=== PATIENT | male | born 1970 | race Caucasian/White ===

== ENCOUNTER → 2017-07-08 | Outpatient (CLI) | payer OTHER ==
[~2017-07-08] MED LIST: ABILIF5PT PO; ACAR25TA PO; ACE325 PO; ALBU8.5H IH; ALP25 PO; ARIP10TA5 PO; ATEN-1 PO; AZIT-1 PO; BACL-1 PO; BLOO-1456 MC; BLOO-1775 MC; BLOO1STR16 MC; CHLO25TA19 PO; CIPR750T84 PO; CPAP; DIA5 PO; DIAZ-1 PO; DIAZ-308 PO; DICY-42 PO; DICY20TA70 PO; DOXY-179 PO; DUL20 PO; DULO30CA35 PO; ESOM40CA42 PO; ESZ3PT PO; ESZO1TAB16 PO; EZET10TA41 PO; FEN200PT GT; FEN200PT PO; FLU60SYR30 IM ONLY; GAB300 PO; GABA-549 PO; GUAI120L3 PEG; HYD2 PO; HYDR2TAB74 PO; INSU100C10 SQ; INSU100C14 SQ; INSU100I30 SQ; LANI SUBQ; LEV25 PO; LEVO50 PO; LEVO50TA80 PO; LOR75 PO; MAGN400T4 PO; MECL-205 PO; MECL25TA27 PO; METF-410 PO; METF-420 PO; METO-734 PO; MILK140C3 PO; MILK500C2 PO; NOVOLOG SUBQ; OMEP-153 PO; OMEP-218 PO; OXYC-857 PO; OXYGENHOME INH; PANT40TA65 PO; PERD PO; POTA99TA6 PO; PROM-110 PO; RANI-324 PO; ROBC PO; ROSU10TA13 PO; SUCR1TAB85 PO; SYRI-1525 SUBQ; TEST200V20 IM; TOBR5DRO43 OS; TRAZ-156 PO; VALS-25 PO; [UNRECOGNIZED DRUG - CODE]; [UNRECOGNIZED DRUG - CODE] MC; [UNRECOGNIZED DRUG - CODE] PO; [UNRECOGNIZED DRUG - CODE] PO
[2017-07-08 09:32] LABS: PLATELET COUNT, AUTOMATED 295 K/uL (150-450)
== END ==
LOC: LAB 09:14
PROVIDERS: ATTEND Emergency Medicine
DX: Z12.5 Encounter for screening for malignant neoplasm of prostate (principal); E11.9 Type 2 diabetes mellitus without complications; E03.9 Hypothyroidism, unspecified
CPT/HCPCS: 36415; 82040; 82247; 82310; 82374; 82435; 82565; 82947; 83036; 84075; 84132; 84153; 84155; 84295; 84443; 84450; 84460; 84520; 85025

== ENCOUNTER 2017-12-05 08:00 | Outpatient (RCR) | payer OTHER ==
[2017-11-30 10:32] VITALS: BP 125/77
[~2017-12-05 08:00] MED LIST changes: -METF-410 PO; -METF-420 PO; +METF-450 PO; +METF-452 PO; +MILK THISTLE140 MG PO; -MILK140C3 PO; +NEED-653 MC; -RANI-324 PO; +RANI-366 PO; -ROSU10TA13 PO; +ROSU10TA5 PO; -TRAZ-156 PO; +TRAZ50TA34 PO
[2017-12-05 08:05] VITALS: BP 122/77
--- NOTE | 2017-12-06 16:22 | SCHUSTER ONCOLOGY NOTE ---
EVENT DATE: December 05, 2017 CHIEF COMPLAINT/REASON FOR VISIT Mr. 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 HISTORY OF PRESENT ILLNESS Harley returns. He has multiple risk factors for secondary erythrocytosis as outlined above. He had three phlebotomies in October 2016 and felt much better. However, he felt that his ability to lift weight was affected by this, and so he chose to stop. He gets occasional nosebleeds, and those did not change regardless of whether or not we did the phlebotomies. We would recommend a continued aspirin, but need to use caution with the nosebleeds. He recently applied for life insurance, but was denied due to his hematocrit approximately 60%. I do recommend he get back on the phlebotomies. He has an upcoming world championship event in [place] in April, and so he plans to do this for a time, stopping in preparation for the event, and then I hope to see him after that time to convince him to continue. PAST MEDICAL/SURGICAL HISTORY 1. Episodic epistaxis. 2. Hypertension. 3. Hyperlipidemia. 4. Obstructive sleep apnea. 5. GERD. 6. History of pancreatitis. 7. Hypogonadism. 8. Chronic neck pain. 9. History of neck surgery. 10. Type 2 diabetes. 11. Hypothyroidism. 12. History of PTSD and anxiety. 13. Polycythemia. 14. Spinal surgery to C3 through C7 spaces. 15. Various arthroscopies. 16. History of lipomas removed. 17. History of tonsillectomy. 18. History of ear surgery. FAMILY HISTORY Remarkable for Parkinson disease, diabetes, lupus, stroke in the family. Mother had renal cell carcinoma by report. SOCIAL HISTORY Never smoked. No significant alcohol use. Harley has presented with his , Marva. 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 REVIEW OF SYSTEMS CONSTITUTIONAL: No fevers, chills, or weight change. HEENT: No headache or vision changes. Occasional nosebleeds with his body building, but this due to mechanical pressure as opposed to other issues. CARDIOVASCULAR: No chest pain, dyspnea on exertion, edema, or history of [place]. RESPIRATORY: No shortness of breath, wheeze, or cough. GASTROINTESTINAL: No nausea or vomiting. GENITOURINARY: No dysuria or hematuria. MUSCULOSKELETAL: No weakness or joint pain. PSYCHIATRIC: No anxiety or depression. ENDOCRINE: No heat or cold intolerance. SKIN: No concerning rashes or bruises. HEMATOLOGIC/LYMPHATIC: Occasional epistaxis. No concerning lumps or bumps. The remainder of 14-point review of systems otherwise negative. PHYSICAL EXAMINATION VITAL SIGNS: Blood pressure 122/77, pulse 51, respiratory rate 16, temperature 97.2 Fahrenheit, oxygen saturation 91% on room air. Weight 124.6 kg. Pain 2/10, fatigue 2/10. GENERAL: In stable condition, resting comfortably in the chair. HEENT: Normocephalic, atraumatic. SKIN: Mild erythema of the skin due to the high hematocrit, which we will attempt to fix. CARDIOVASCULAR: Deferred EXTREMITIES: No clubbing, cyanosis, or edema. Full physical exam deferred today due to amount of time spent counseling and coordination of care . IMPRESSION AND PLAN Mr. Gutierrez is a pleasant, 47-year-old gentleman with the following: Secondary erythrocytosis. His hematocrit has been as high as 63%. Our goal is to get him down closer to 50%. He does plan to continue to use testosterone for hypogonadism. He does get epistaxis with body building, but no epistaxis outside of that. We are trying to keep his iron low normal. He does not want to continue phlebotomies when he is nearing competition, but will try to get phlebotomies more frequently when he is not competing. We had an excellent discussion today. BILLING Return visit level 4. Total time 30 minutes, counseling time 20. MTDD
[2017-12-07] MEDS ORDERED: DIAZ-308 PO (08:29)
== END 2018-01-04 08:52 | disposition home or self-care (01) ==
LOC: ONC 08:00
PROVIDERS: ATTEND Internal Medicine
DX: E83.119 Hemochromatosis, unspecified (principal); D75.1 Secondary polycythemia; E29.1 Testicular hypofunction
CPT/HCPCS: 36415; 85014; 99212

== ENCOUNTER → 2018-03-13 | Outpatient (CLI) | payer OTHER ==
[~2018-03-13] MED LIST changes: +CHOL10005 PO; +SULF-198 PO
[2018-03-13 15:48] LABS: PLATELET COUNT, AUTOMATED 257 K/uL (150-450)
== END ==
LOC: LAB 14:47
PROVIDERS: ATTEND Emergency Medicine
DX: N18.9 Chronic kidney disease, unspecified (principal); F41.9 Anxiety disorder, unspecified; D75.1 Secondary polycythemia
CPT/HCPCS: 36415; 81001; 82043; 82306; 82310; 82374; 82435; 82565; 82607; 82610; 82947; 83970; 84100; 84132; 84295; 84520; 85025

== ENCOUNTER 2018-07-10 02:31 | Inpatient (IN) | payer OTHER ==
--- NOTE | 2018-06-27 14:44 | EKG ---
FACILITY: [facility] PATIENT NAME: MARY FLORES : [id number] MR: [id number] V: [id number] EXAM DATE: ORDERING PHYSICIAN: MIKE LOPEZ TECHNOLOGIST: Test Reason : pre-op Blood Pressure : / mmHG Vent. Rate : 083 BPM Atrial Rate : 083 BPM P-R Int : 146 ms QRS Dur : 106 ms QT Int : 372 ms P-R-T Axes : 070 082 -13 degrees QTc Int : 437 ms Normal sinus rhythm T wave abnormality, consider inferior ischemia Abnormal ECG When compared with ECG of 11-OCT-2016 13:24, QRS duration has increased Criteria for Septal infarct are no longer present Confirmed by Rene Juarez ([id number]) on 06/28/2018 12:07:04 AM Referred By: Confirmed By:Rene Lantigua
[2018-07-09 11:25] LABS: PLATELET COUNT, AUTOMATED 255 K/uL (150-450)
[2018-07-10] VITALS (9 sets, daily range): BP systolic 95–142; BP diastolic 59–105
[~2018-07-10] VITALS: Ht 188 cm; Wt 115.9 kg
[2018-07-10] MEDS ORDERED: NS(*) 0.9% 500 ML BAG 500 ML ONE (08:10)
[2018-07-10] MEDS ORDERED: CLINDAMYCIN(*) 900 MG/NS 50 ML 50 ML IVPB ONE (09:00)
[2018-07-10] MEDS ORDERED: NORMOSOL R SOLN(*) 1000 ML BAG 1,000 ML IV PRN (09:00)
[2018-07-10] MEDS ORDERED: LIDOCAINE/SOD BICARB 8.4% SYR ID ONE (09:00)
[2018-07-10] MEDS ORDERED: MIDAZOLAM 2 MG/2 ML VIAL IVP PRN (09:00)
[2018-07-10] MEDS ORDERED: ACETAMINOPHEN 500 MG TAB PO ONE (09:00)
[2018-07-10] MEDS ORDERED: ROCURONIUM BROM 10 MG/ML 10 ML ONE (09:46)
[2018-07-10] MEDS ORDERED: fentaNYL CITR 100 MCG/2 ML AMP ONE ×4 (09:46→18:24)
[2018-07-10] MEDS ORDERED: LIDOCAINE MPF 1% 5 ML VIAL ONE (09:46)
[2018-07-10] MEDS ORDERED: DEXAMETHASONE SOD PHOS 10MG/ML ONE (09:46)
[2018-07-10] MEDS ORDERED: ONDANSETRON 4 MG/2 ML VIAL ONE (09:46)
[2018-07-10] MEDS ORDERED: PROPOFOL EMUL(*) 10MG/ML 20 ML 20 ML ONE (09:46)
[2018-07-10] MEDS ORDERED: KETAMINE HCL 500 MG/10 ML VIAL ONE (09:47)
[2018-07-10] MEDS ORDERED: PHENYLEPHRINE 10 MG/1 ML VIAL ONE (09:52)
[2018-07-10] MEDS ORDERED: PROPOFOL EMUL(*) 10MG/ML 20 ML 60 ML ONE ×2 (09:56→14:18)
[2018-07-10] MEDS ORDERED: REMIFENTANIL HCL 1 MG VIAL ONE ×4 (10:03→14:57)
[2018-07-10] MEDS ORDERED: PREGABALIN 150 MG CAPSULE PO ONE (10:10)
[2018-07-10] MEDS ORDERED: THROMBIN (BOVINE) 20,000 UNIT VIAL ONE (10:11)
[2018-07-10] MEDS ORDERED: APREPITANT 40 MG CAP PO ONE (10:30)
[2018-07-10] MEDS ORDERED: NS 0.9% IR PRN (11:00)
[2018-07-10] MEDS ORDERED: BACITRACIN IR PRN (11:00)
[2018-07-10] MEDS: BACITRACIN IR PRN ×2 (13:10→13:42)
[2018-07-10] MEDS: NS 0.9% IR PRN ×2 (13:10→13:42)
[2018-07-10] MEDS ORDERED: ROPIVACAINE 0.2% 20 ML VIAL ONE (15:32)
--- NOTE | 2018-07-10 16:30 | EKG ---
[place] [facility] [place] NAME: MARY FLORES : [id number] MR: [id number] V: [id number] EXAM DATE: ORDERING PHYSICIAN: ELIECER OLIVEROS TECHNOLOGIST: MITA Thorpe Reason : Blood Pressure : / mmHG Vent. Rate : 096 BPM Atrial Rate : 096 BPM P-R Int : 146 ms QRS Dur : 102 ms QT Int : 342 ms P-R-T Axes : 072 084 022 degrees QTc Int : 432 ms Sinus rhythm Nonspecific interventricular conduction delay Nonspecific ST findings anterior leads Confirmed by JANKI BLOOM ([id number]) on 07/10/2018 4:49:08 PM Referred By: JESSICA Confirmed By:JANKI BLOOM
[2018-07-10] MEDS ORDERED: METOPROLOL TART 5 MG/5 ML VIAL ONE ×2 (16:32→16:55)
[2018-07-10] MEDS ORDERED: ACETAMINOPHEN(*)1000 MG/100 ML 100 ML IVPB PRN (16:40)
[2018-07-10] MEDS ORDERED: MAGNESIUM HYDROXIDE* 30ML UDCP PO PRN (16:40)
[2018-07-10] MEDS ORDERED: ONDANSETRON 4 MG/2 ML VIAL IVP PRN (16:40)
[2018-07-10] MEDS ORDERED: diphenhydrAMINE 25 MG CAP PO PRN (16:40)
[2018-07-10] MEDS ORDERED: oxyCODONE HCL 5 MG CAP PO PRN (16:40)
[2018-07-10] MEDS ORDERED: HYDROmorphone HCL 2 MG/ML SDV IVP PRN (16:40)
[2018-07-10] MEDS ORDERED: DIAZEPAM 5 MG TAB PO PRN (16:40)
[2018-07-10] MEDS ORDERED: BENZOCAINE/MENTHOL 1 EACH LOZG PO PRN (16:40)
[2018-07-10] MEDS ORDERED: BISACODYL 10 MG SUPP PR PRN (16:40)
[2018-07-10] MEDS ORDERED: LR(*) 1000 ML BAG 1,000 ML IV PRN (16:40)
[2018-07-10] MEDS ORDERED: FLUSH 10 ML SYR IVP PRN (16:40)
[2018-07-10] MEDS ORDERED: ACETAMINOPHEN 500 MG TAB PO PRN (16:40)
[2018-07-10] MEDS: METOPROLOL TART 5 MG/5 ML VIAL ONE ×2 (17:56→18:02)
--- NOTE | 2018-07-10 18:01 | RADIOLOGY IMAGING REPORT ---
FACILITY: [facility] PATIENT NAME: Harley Gutierrez : 1970 MR: [id number] V: [id number] EXAM DATE: ORDERING PHYSICIAN: MIKE LOPEZ TECHNOLOGIST: Location: [facility] Patient: Harley Gutierrez : 1970 Visit/Account:[id number] Date of Sevice: 07/10/2018 Exam type: CERVICAL SPINE 2 OR 3 VIEW History: C3-4 AND C6-7 DISC HERNIATION/FUSION Comparison: June 02, 2018. Findings: A single intraoperative cross table lateral view of the cervical spine was submitted. There is an en dotracheal tube in place. There is a metallic intervertebral disc spacer and screws producing anteri or fusion at C3-4. Incompletely imaged is anterior plate and screws at C4-C5 and possibly C6 IMPRESSION: 1. As above Report Dictated By: Marleny Sands MD at 07/10/2018 5:55 PM Report E-Signed By: Marleny aSnds MD at 07/10/2018 5:57 PM WSN:[id number]
[2018-07-10] MEDS ORDERED: VORT5TAB PO (18:54)
--- NOTE | 2018-07-10 18:59 | Hospitalist Progress Note ---
Subjective Progress Notes Subjective Patient seen post-op. Reviewed PMHx (type 2 DM, depression, DASHAWN, chronic pain) and medications. During surgery anesthesia was concerned about possible ST changes on monitoring. He had EKG done, which was unremarkable. Troponin was negative as well. At present he denies any CP/dyspnea/nausea. Physical Exam Vital Signs Date Time Temp Pulse Resp B/P (MAP) Pulse Ox O2 Delivery O2 Flow Rate FiO2 07/10/18 18:35 100 20 93 07/10/18 11:19 97.5 125/90 (102) Room Air General Appearance: Alert, Awake Neck: Other (cervical collar in place) Cardiovascular: Regular Rate and Rhythm Respiratory: Clear to Auscultation Psych: Alert & Oriented X3 Result Diagram: 07/09/18 1114 07/09/18 1114 Assessment and Plan Problems: (1) Depression Status: Chronic Assessment & Plan: Will continue with his same regimen with Trintellix, trazodone, Wellbutrin. (2) Type II diabetes mellitus Status: Chronic Assessment & Plan: ADA diet. Continue metformin. Watch glucoses and use SSI as needed. (3) Hypothyroidism Status: Chronic Assessment & Plan: Continue L-thyroxine. (4) Obstructive sleep apnea Status: Chronic Assessment & Plan: Continue CPAP. JANKI BLOOM MD Jul 10, 2018 18:59
[2018-07-10] MEDS ORDERED: INSULIN HUM LISPRO 100 UN/ML 3 ML VIAL SUBQ PRN (19:15)
[2018-07-10] MEDS ORDERED: BUPR-126 PO (20:04)
[2018-07-10] MEDS ORDERED: METF-452 PO (20:04)
[2018-07-10] MEDS: CLINDAMYCIN(*) 900 MG/NS 50 ML 50 ML IVPB SCH (20:27)
[2018-07-10] MEDS: DOCUSATE SODIUM 100 MG CAP PO SCH (20:27)
[2018-07-10] MEDS: GABAPENTIN 300 MG CAP PO SCH (20:28)
[2018-07-10] MEDS: ATENOLOL 50 MG TAB PO SCH (20:29)
[2018-07-10] MEDS: APAP/HYDROCODONE 325/5 TAB PO PRN (20:30)
[2018-07-10] MEDS ORDERED: traZODone HCL 50 MG TAB PO SCH (21:00)
[2018-07-11] VITALS: BP 100/67
[2018-07-11 01:00] VITALS: BP 104/64
[2018-07-11 02:00] VITALS: BP 104/63
[2018-07-11] MEDS: APAP/HYDROCODONE 325/5 TAB PO PRN ×2 (02:22→06:15)
[2018-07-11 03:00] VITALS: BP 100/60
[2018-07-11] MEDS: CLINDAMYCIN(*) 900 MG/NS 50 ML 50 ML IVPB SCH (03:44)
[2018-07-11] MEDS ORDERED: LEVOTHYROXINE SOD 0.05 MG TAB PO SCH (06:00)
[2018-07-11 06:43] VITALS: BP 111/65
[2018-07-11] MEDS ORDERED: DOCU240C84 PO (07:31)
[2018-07-11] MEDS ORDERED: HYDR-385 PO (07:31)
[2018-07-11] MEDS: ATENOLOL 50 MG TAB PO SCH (08:00)
[2018-07-11] MEDS: GABAPENTIN 300 MG CAP PO SCH (08:00)
[2018-07-11] MEDS: DOCUSATE SODIUM 100 MG CAP PO SCH (08:00)
[2018-07-11 08:32] VITALS: Ht 188 cm; Wt 115.9 kg
[2018-07-11] MEDS ORDERED: RANITIDINE HCL 150 MG TAB PO SCH (09:00)
[2018-07-11] MEDS ORDERED: ARIPiprazole 10 MG TAB PO SCH (09:00)
[2018-07-11] MEDS ORDERED: VORTIOXETINE HYDROBROMIDE 5 MG TAB PO SCH (09:00)
[2018-07-11] MEDS ORDERED: buPROPion XL 150 MG TABCR PO SCH (09:00)
[2018-07-11] MEDS ORDERED: metFORMIN HCL 500 MG TAB PO SCH (09:00)
--- NOTE | 2018-07-11 10:16 | NUR ---
Physical Therapy Impression PT eval completed and pt met all PT goals for safe d/c home with initial visit. No further visit planned. Physical Therapy Goals PT goals met with initial visit; no further visits planned 1. Pt to be modified indep with all bed mobility and supine<>sit trnsfrs 2. Pt to be modified indep with all sit to/from stand transfers 3. Pt to be modified indep with ambulation x 150' without assistive device 4. Pt to sushil up/down 6 steps with rail to simulate entry to home with SBA/Modified indep Patient's Goals
--- NOTE | 2018-07-11 11:03 | Hospitalist Progress Note ---
Subjective Progress Notes Subjective He was admitted s/p cervical fusion. He has no complaints this morning. He would like to go home. Patient Complains of: Cardiovascular: No: Chest Pain Respiratory: No: Shortness of Breath Physical Exam Vital Signs Date Time Temp Pulse Resp B/P (MAP) Pulse Ox O2 Delivery O2 Flow Rate FiO2 07/11/18 08:00 91 Room Air 07/11/18 06:43 97.6 86 20 111/65 (80) 07/11/18 03:00 2.0 Intake and Output 07/11/18 06:59 Intake Total 3805 ml Output Total 780 ml Balance 3025 ml Intake Oral 1250 ml IV Total 2555 ml Output Urine Total 750 ml Drainage Total 30 ml # Voids 3 General Appearance: Alert, Awake, No Acute Distress, Afebrile Neuro: No Gross deficits Cardiovascular: Regular Rate and Rhythm Respiratory: No Respiratory Distress, Clear to Auscultation GI: Soft and Non-Tender Psych: Alert & Oriented X3, Appropriate Mood & Affect Result Diagram: 07/09/18 1114 07/09/18 1114 Assessment and Plan Problems: (1) Depression Status: Chronic Assessment & Plan: Will continue with his same regimen with Trintellix, trazodone, Wellbutrin. (2) Type II diabetes mellitus Status: Chronic Assessment & Plan: ADA diet. Continue metformin. Watch glucoses and use SSI as needed. (3) Hypothyroidism Status: Chronic Assessment & Plan: Continue L-thyroxine. (4) Obstructive sleep apnea Status: Chronic Assessment & Plan: Continue CPAP. Exam Sepsis Risk: No Definite Risk MAHOGANY TOMPKINS Jul 11, 2018 11:03
[2018-07-11] MEDS ORDERED: GABAPENTIN 300 MG CAP PO SCH (12:00)
--- NOTE | 2018-07-11 16:49 | OPERATIVE REPORT 1 ---
EVENT DATE: July 10, 2018 SURGEON: Taras Hogan MD ANESTHESIOLOGIST: Shai Alegria MD ANESTHESIA: General endotracheal anesthesia. VIDEO ARCADE MANAGER: JED Augustin PREOPERATIVE DIAGNOSES 1. C3-C4 broad-based disk bulge with cord compression. 2. C6-C7 broad-based disk bulge with right foraminal narrowing. 3. 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 POSTOPERATIVE DIAGNOSES 1. C3-C4 broad-based disk bulge with cord compression. 2. C6-C7 broad-based disk bulge with right foraminal narrowing. 3. 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 PROCEDURE PERFORMED C3-C4 and C6-C7 anterior cervical discectomy and fusion. INTRAVENOUS FLUIDS 2100 mL ESTIMATED BLOOD LOSS 40 mL IMPLANTS USED A size small, 6 mm tall, 6-degree lordotic interbody device from [employer], a size small, 7 mm tall, 6-degree lordotic titanium interbody device from [employer], and 3.5 mm x 14 mm fixation screws from [employer] times three. DRAINS A 10-Thai round Jace-Lynn drain through the neck. COMPLICATIONS None. DISPOSITION Post-anesthesia care unit. INDICATIONS FOR SURGERY Harley Gutierrez is a 47-year-old male who presented to me with a long history of neck problems. He underwent a C4-C5, C5-C6 anterior cervical discectomy and fusion in the past and did well with that. At this point, he presented with right greater than left arm pain going into the dorsal forearm and into the long and middle fingers on the right greater than the left. He had significant issues with fine motor skills such as buttoning buttons and manipulating small objects. He also noted some issues with his gait and felt quite unbalanced. He reported dysesthesias with certain neck positions radiating down his spine into the upper back and down to the lower back. His physical examination revealed a strongly positive Romberg test. He had a positive Lhermitte, but a negative Spurling maneuver bilaterally. Muscle strength was 5/5 throughout, while light touch sensation was diminished in the long finger on the right. Deep tendon reflexes were absent in the right biceps, 1+ in the left biceps, and 1+ in bilaterally triceps. He had a negative Montano sign bilaterally. X-rays and an MRI showed what appeared to be a solid interbody fusion at C4-C5 and C5-C6. There was severe disk height loss at C3-C4, and at that level, a very large broad-based disk bulge caused significant flattening of the cervical spinal cord. At C6-C7, there was right greater than left neural foraminal narrowing with less crowding of the cord. Secondary to his symptoms that were consistent with myelopathy as well as radiculopathy and failure of physical therapy, multiple injections, and activity modifications, Mr. Gutierrez was offered a C3-C4 and C6-C7 anterior cervical diskectomy and fusion. Prior to surgery, he was sent to an ENT specialist to ensure that vocal cord function was normal, and it was. Therefore, we elected to perform the procedure from the contralateral side of his index operation. Prior to surgery, I explained in detail to the patient the possible risks of surgery. These risks include bleeding, infection, damage to surrounding structures, nerve root injury, spinal cord injury, spinal fluid leak, meningitis, persistent and/or worsening pain, , blindness, sexual dysfunction, autonomic nervous system dysfunction, and other unforeseen medical and surgical complications. An understanding that in general spinal surgery is more predictive at improving extremity discomfort than axial spine pain was stressed. Further understanding that symptoms of myelopathy are more likely to stabilize rather than improve was also stressed. Finally, we discussed the fact that given the revision nature of the procedure, he had an increased risk for such things as laryngeal recurrent or superior laryngeal nerve root injury, esophageal injury, hoarseness, swallowing difficulties, etc. DESCRIPTION OF PROCEDURE On the day of surgery, the patient was met in the preoperative hold area, and all questions were answered. The operative site was identified and marked by myself. The patient was brought in good condition to the operating room, and after succumbing to anesthesia, was positioned in the supine position on a standard OR bed. Care was taken to maintain appropriate perfusion pressures during anesthesia. All bony protuberances and soft tissues were well padded in the standard fashion. Preoperative antibiotics were administered according to the appropriate timing schedule. At the conclusion of the procedure, sponge and needle counts were correct times two. A final timeout was undertaken by members of the operating team to confirm correct patient, correct levels, and correct surgery. The patient was then prepped and draped in the standard sterile orthopedic fashion, and an oblique incision was made along the medial border of the sternocleidomastoid muscle on the right side of the anterior neck. Sharp dissection was carried out down to the platysma, which was divided. The interval medial to the sternocleidomastoid muscle was identified, and a finger was used to palpate the carotid pulse. Blunt finger dissection was carried out medial to the carotid sheath coming down onto the cervical spine. The previously placed anterior plate was identified, and we first chose to address the C3-C4 level just above that plate. A 15 blade was used to incise the annulus, and progressively smaller curettes were used to perform a discectomy moving from ventral to dorsal. We also performed this discectomy out into the uncovertebral joints, and once we reached the posterior aspect of the disk space, a high-speed giuseppe was used to remove the posterior osteophyte. I was able to get through the posterior annulus and then carefully dissect through the posterior longitudinal ligament and into the canal. #1 and #2 Kerrison rongeurs were used to remove the posterior longitudinal ligament, and a nerve hook was passed behind the vertebral bodies ensuring good decompression of the cord itself. I then selected a 6 mm rasp and inserted that into the C3-C4 disk space, and it had an excellent tight press fit. We, therefore, selected a 6 mm interbody device, and this was packed with demineralized bone matrix and then inserted into the disk space and countersunk about 0.5 mm. Due to the body habitus, we were unable to place a screw downward into the C4 vertebral body, but we were able to get a screw through the integrated hole in the device and into the vertebral body of C3. Attention was then turned to the C6-C7 level. We placed our retractor over that C6-C7 disk and again first incised the annulus with a 15 blade, and then using progressively smaller curettes and working from ventral to dorsal, performed a discectomy out to the width of the uncovertebral joints bilaterally. We again took down the posterior longitudinal ligament and performed bilateral foraminotomies to ensure that the exiting nerve roots were well decompressed. A nerve hook was passed posterior to the vertebral bodies as well as out the foramina to ensure adequate decompression. At this level, we selected a 7 mm tall interbody device, and this was also packed with demineralized bone matrix and then inserted into the C6-C7 disk space and countersunk about 0.5 mm. The awl was used to penetrate the endplates through the integrated holes in the device, and we then placed 3.5 mm x 14 mm screws both up into C6 and down into C7. Final radiographs were obtained, and the wound was then irrigated with copious sterile saline solution. It was closed in layers using interrupted sutures for the platysma, inverted interrupted sutures for the subcutaneous tissue, and then a running subcuticular skin stitch. A 10-Thai round Jace- Lynn drain was left deep to the platysma. There were no changes in neurophysiologic monitoring throughout the course of the case. Sponge and needle counts were correct times two. POSTOPERATIVE CARE PLAN The patient will remain in hospital overnight and will be discharged home postoperative day #1 after his drain has been pulled. He will then follow up with me in two weeks' time for wound check and examination. YESY
[2018-07-12] MEDS ORDERED: BACL-51 PO (17:19)
== END 2018-07-11 10:15 | disposition home or self-care (01) | DRG 473 ==
LOC: OR 02:31 → MED 18:35
PROVIDERS: ADMIT Orthopaedic Surgery; ATTEND Orthopaedic Surgery
PROC: 0RT30ZZ Resection of Cervical Vertebral Disc, Open Approach (ICD-10-PCS; 2018-07-10)
PROC: 00NW0ZZ Release Cervical Spinal Cord, Open Approach (ICD-10-PCS; 2018-07-10)
PROC: 0RG20A0 Fusion of 2 or more Cervical Vertebral Joints with Interbody Fusion Device, Anterior Approach, Anterior Column, Open Approach (ICD-10-PCS; principal; 2018-07-10 12:21)
DX: M50.01 Cervical disc disorder with myelopathy, high cervical region (principal); M50.11 Cervical disc disorder with radiculopathy, high cervical region; M25.78 Osteophyte, vertebrae; G47.33 Obstructive sleep apnea (adult) (pediatric); F32.9 Major depressive disorder, single episode, unspecified; E11.9 Type 2 diabetes mellitus without complications; E03.9 Hypothyroidism, unspecified; Z79.84 Long term (current) use of oral hypoglycemic drugs; Z87.828 Personal history of other (healed) physical injury and trauma
CPT/HCPCS: 36415; 36416; 72020; 82040; 82247; 82310; 82374; 82435; 82553; 82565; 82947; 82948; 83036; 84075; 84132; 84155; 84295; 84450; 84460; 84484; 84520; 85025; 86850; 86900; 86901; 93005; 95940; 97161; C1713; J1100; J2001; J2250; J2370; J2405; J2704; J2795; J3010; J3490; J7040; J8501; L0120

== ENCOUNTER 2018-08-14 14:00 | Outpatient (RCR) | payer OTHER ==
[2018-07-11 08:32] VITALS: Wt 117.4 kg
[~2018-08-14 14:00] MED LIST changes: +BACL-51 PO; +BUPR-126 PO; +DOCU240C84 PO; +HYDR-385 PO; -RANI-366 PO; +RANI-54 PO; -TRAZ50TA34 PO; +TRAZ50TA52 PO; +VORT5TAB PO
[2018-08-14 16:02] VITALS: BP 130/81
--- NOTE | 2018-08-15 08:36 | SCHUSTER ONCOLOGY NOTE ---
EVENT DATE: August 14, 2018 CHIEF COMPLAINT/REASON FOR VISIT Mr. 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 HISTORY OF PRESENT ILLNESS Harley returns. He has multiple risk factors for secondary erythrocytosis as outlined above. He is requiring phlebotomies approximately quarterly. For a time, he felt it was affecting his ability to lift weights so he chose to stop this. He does get occasional nosebleeds. We recommended continued aspirin but need to use caution with the nosebleeds related to his body building. He restarted in part because he was denied for life insurance when his hematocrit was approximately 60%. He is overall doing well. He had a recent neck surgery for failed neck fusion. This was approximately three weeks ago. He is recovering from this. No new issues. PAST MEDICAL/SURGICAL HISTORY 1. Episodic epistaxis. 2. Hypertension. 3. Hyperlipidemia. 4. Obstructive sleep apnea. 5. GERD. 6. History of pancreatitis. 7. Hypogonadism. 8. Chronic neck pain. 9. History of neck surgery. 10. Type 2 diabetes. 11. Hypothyroidism. 12. History of PTSD and anxiety. 13. Polycythemia. 14. Spinal surgery to C3 through C7 spaces. 15. Various arthroscopies. 16. History of lipomas removed. 17. History of tonsillectomy. 18. History of ear surgery. FAMILY HISTORY Remarkable for Parkinson disease, diabetes, lupus, stroke in the family. Mother had renal cell carcinoma by report. SOCIAL HISTORY Never smoked. No significant alcohol use. Harley has presented with his , Marva. 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 REVIEW OF SYSTEMS CONSTITUTIONAL: No fevers, chills, or weight change. HEENT: No headache or vision changes. Occasional nosebleeds with his body building, but this due to mechanical pressure as opposed to other issues. CARDIOVASCULAR: No chest pain, dyspnea on exertion, edema, or history of [place]. RESPIRATORY: No shortness of breath, wheeze, or cough. GASTROINTESTINAL: No nausea or vomiting. GENITOURINARY: No dysuria or hematuria. MUSCULOSKELETAL: No weakness or joint pain. PSYCHIATRIC: No anxiety or depression. ENDOCRINE: No heat or cold intolerance. SKIN: No concerning rashes or bruises. HEMATOLOGIC/LYMPHATIC: Occasional epistaxis. No concerning lumps or bumps. The remainder of 14-point review of systems otherwise negative. PHYSICAL EXAMINATION VITAL SIGNS: Blood pressure 130/81, pulse 66, respiratory rate 16, temperature 98.3 Fahrenheit, oxygen saturation 91% on room air. Weight 116.4 kg. Pain 0/10, fatigue 0/10. GENERAL: Stable condition, resting comfortably in the chair today. NECK: Neck is in a brace. HEENT: Full exam deferred as he is recently recovering from surgery. CARDIOVASCULAR: Regular rate and rhythm. No extra sounds or murmurs today. LUNGS: Clear. ABDOMEN: Soft, mild obesity. EXTREMITIES: No clubbing, cyanosis or significant edema. SKIN: No concerning rashes or lesions. Remainder of physical exam unremarkable today. IMPRESSION AND PLAN Mr. Gutierrez is a very pleasant 47-year-old gentleman with the following: Secondary erythrocytosis with multiple risk factors. His hematocrit has been as high as 63%. Our goal is to get him down closer to 50%. He does continue to use testosterone for hypogonadism. He does get epistaxis with body building but no epistaxis outside of that. We are trying to keep his iron low normal. We would like to continue phlebotomies approximately quarterly as long as his hematocrit is greater than 50%, which it usually is each quarter. I answered all of his questions today. BILLING Return visit level 3. Total time 20 minutes, counseling time 15. MTDD
== END 2018-09-11 13:00 | disposition home or self-care (01) ==
LOC: ONC 14:00
PROVIDERS: ATTEND Internal Medicine
DX: D75.1 Secondary polycythemia (principal); E29.1 Testicular hypofunction
CPT/HCPCS: 99212